=== PATIENT | male | born 1990 | race Caucasian/White ===

== ENCOUNTER 2020-05-25 23:33 | Emergency (ER) | payer MEDICARE ==
[~2020-05-25] VITALS: Ht 182.9 cm; Wt 72.6 kg
[2020-05-25] MEDS ORDERED: PROAIR HFA8.5 GM INH (23:39)
[2020-05-26] MEDS ORDERED: PROAIR HFA8.5 GM INH (00:58)
[2020-05-26 01:02] VITALS: BP 112/69
== END 2020-05-26 01:02 | disposition home or self-care (01) ==
LOC: M.ERS 23:33
DX: J45.909 Unspecified asthma, uncomplicated (principal); F17.210 Nicotine dependence, cigarettes, uncomplicated

== ENCOUNTER 2021-07-30 09:41 | Emergency (ER) | payer MEDICARE ==
[~2021-07-30] VITALS: Ht 185.4 cm; Wt 72.6 kg
[~2021-07-30 09:41] MED LIST: PROAIR HFA8.5 GM INH
[2021-07-30 11:09] LABS: ABSOLUTE MONOCYTES 0.8 thou/uL (0.0-1.2); ABSOLUTE NEUTROPHILS 4.6 thou/uL (1.6-8.1); BASOPHILS 0.7 %; EOSINOPHILS 0.6 %; HEMATOCRIT 44.3 % (42.0-52.0); MCH 30.2 pg (26.0-34.0); MCHC 33.8 g/dL (28.0-37.0); MCV 89.4 fL (80.0-100.0); MONOCYTES 12.1 %; MPV 7.5 fl. (7.2-11.1); NUCLEATED RBCS 0 /100WBC; PLATELET COUNT* 179 thou/uL (150-400); POLYS 71.6 %; RBC 4.95 mil/uL (4.50-6.00); RDW-CV 13.5 % (10.5-14.5); WBC 6.4 thou/uL (4.0-11.0)
[2021-07-30 11:31] LABS: CALCIUM 8.7 mg/dL (8.5-10.1); CREATININE 0.9 mg/dL (0.6-1.3); POTASSIUM 3.4 mmol/L (3.5-5.1)
[2021-07-30 11:42] LABS: TOTAL BILIRUBIN 0.3 mg/dL (<0.1-1.0); TOTAL PROTEIN 7.2 g/dL (6.4-8.2)
[2021-07-30] MEDS ORDERED: VENTOLIN HFA 1818 GM INH (12:07)
[2021-07-30] MEDS ORDERED: ZPAK PO (12:07)
[2021-07-30] MEDS ORDERED: MEDROLDOSEPACK PO (12:07)
[2021-07-30 12:25] VITALS: BP 119/79
--- NOTE | 2021-07-31 13:42 | EKG ---
[place] [address] ELECTROCARDIOGRAM REPORT Name: YAMILETH THOMAS [id number] Admission: 07/30/21 Attend Phys: Discharge: 07/30/21 Date of : [birth year] Date of Service: 07/30/21 1111 Report #: [id number] THIS REPORT FOR: //name// [facility] ED Test Date: 2021-07-30 Test Time: 11:11:25 Pat Name: YAMILETH THOMAS Department: Room: Gender: Emergency Specialist: [facility] : 1990 Requested By: Gracie Atkins Order Number: [id number] : Xiang Booker Measurements Intervals [place] Rate: 97 P: 68 CT: 161 QRS: 61 QRSD: 82 T: 62 QT: 331 QTc: 421 Interpretive Statements Sinus rhythm No previous ECG available for comparison Electronically Signed On 07-31-2021 13:42:31 [employer] by Xiang Booker [email or web address] <ELECTRONICALLY SIGNED> By: Xiang Booker MD, [facility] 07/31/21 1342 1111 1111 Xiang Booker MD, FACC /EPI
== END 2021-07-30 12:25 | disposition home or self-care (01) ==
LOC: M.ERS 09:41
PROVIDERS: Nurse Practitioner Family
DX: J45.901 Unspecified asthma with (acute) exacerbation (principal); Z87.01 Personal history of pneumonia (recurrent); Z87.820 Personal history of traumatic brain injury